=== PATIENT | female | born 1990 | race Caucasian/White ===

== ENCOUNTER 2018-01-29 05:17 | Inpatient (IN) | payer OTHER ==
[~2018-01-29] VITALS: Ht 162.6 cm; Wt 91.6 kg
[~2018-01-29 05:17] MED LIST: IBUP-1673 PO; PREN-196 PO
[2018-01-29] MEDS ORDERED: LACTATED RINGERS 1000ML 1,000 ML IV PRN (05:40)
[2018-01-29 06:18] LABS: MEAN CORPUSCULAR HEMOGLOBIN 29.6 pg (27.0-33.0); MEAN CORPUSCULAR HGB CONC 33.8 g/dL (32.0-36.0); MEAN CORPUSCULAR VOLUME 87.8 fL (79-99); NUCLEATED RED BLOOD CELLS 0.1 % (0.0-0.19); PLATELET COUNT (AUTO) 180 K/uL (130-400); RED CELL DISTRIBUTION WIDTH 14.5 % (11.0-15.5); WHITE BLOOD COUNT (AUTO) 12.4 K/uL (4.8-10.8)
[2018-01-29] MEDS ORDERED: EPHEDRINE SULFATE 50 MG/ML AMPULE IVP PRN (07:45)
[2018-01-29] MEDS ORDERED: PROMETHAZINE HCL 25 MG/ML 1ML AMPULE IM PRN (07:45)
[2018-01-29] MEDS ORDERED: NALOXONE HCL 0.4 MG/1 ML ML IV PRN (07:45)
[2018-01-29] MEDS ORDERED: LACTATED RINGERS 500 ML 500 ML IV PRN (07:45)
[2018-01-29] MEDS ORDERED: MEPERIDINE-PF 50 MG/ML SYG IVP PRN (07:45)
[2018-01-29 08:38] LABS: APPEARANCE,URINE Clear (CLEAR); BILIRUBIN,URINE Negative (NEGATIVE); COLOR,URINE Yellow (YELLOW); GLUCOSE, URINE (UA) Negative (NEGATIVE); KETONES,URINE Negative (NEGATIVE); LEUKOCYTE ESTERASE ,URINE Negative (NEGATIVE); NITRATE,URINE Negative (NEGATIVE); OCCULT BLOOD,URINE Negative (NEGATIVE); PROTEIN,URINE Negative (NEGATIVE); UROBILINOGEN,URINE 0.2 mg/dL (0.2-1.0)
[2018-01-29 09:07] LABS: RAPID PLASMA REAGIN NONREACTIVE (NONREACTIVE)
[2018-01-29] MEDS ORDERED: ACETAMINOPHEN 325 MG TAB ONE (13:47)
[2018-01-29] MEDS ORDERED: OXYTOCIN 10 USP UNITS/ML ONE ×2 (16:03→17:43)
[2018-01-29] MEDS ORDERED: LIDOCAINE HCL-MPF 1% 2ML VIAL ONE (16:05)
[2018-01-29] MEDS ORDERED: BENZOCAINE/LANOLIN/ALOE VERA 60 ML AEROSOL TP PRN (16:30)
[2018-01-29] MEDS ORDERED: LANOLIN 30GM OINTMENT TP PRN (16:30)
[2018-01-29] MEDS ORDERED: OXYTOCIN-LR 20 UNITS/1000 ML 1,000 ML IV SCH (16:30)
[2018-01-29] MEDS ORDERED: ACETAMINOPHEN 325 MG TAB PO PRN (16:30)
[2018-01-29] MEDS ORDERED: WITCH HAZEL 1 PAD TP PRN (16:30)
[2018-01-29 18:05] VITALS: BP 123/75
[2018-01-29] MEDS: IBUPROFEN 600 MG TABLET PO PRN (18:34)
[2018-01-29 20:40] VITALS: BP 122/61
[2018-01-29] MEDS: DOCUSATE SODIUM 100 MG CAP PO SCH (20:55)
[2018-01-30 00:57] VITALS: BP 125/60
[2018-01-30 04:51] VITALS: BP 95/54
[2018-01-30 05:22] LABS: MEAN CORPUSCULAR HEMOGLOBIN 30.2 pg (27.0-33.0); MEAN CORPUSCULAR HGB CONC 34.3 g/dL (32.0-36.0); MEAN CORPUSCULAR VOLUME 87.9 fL (79-99); PLATELET COUNT (AUTO) 186 K/uL (130-400); RED BLOOD CELL COUNT(AUTO) 3.64 MIL/uL (4.00-5.50); RED CELL DISTRIBUTION WIDTH 14.5 % (11.0-15.5); WHITE BLOOD COUNT (AUTO) 13.3 K/uL (4.8-10.8)
[2018-01-30] MEDS: IBUPROFEN 600 MG TABLET PO PRN ×2 (06:57→18:49)
[2018-01-30 07:52] VITALS: BP 120/74
[2018-01-30] MEDS: DOCUSATE SODIUM 100 MG CAP PO SCH ×2 (09:09→21:01)
[2018-01-30 10:24] LABS: HEPATITIS Bs ANTIGEN SCREEN P Negative (Negative)
[2018-01-30 11:43] VITALS: BP 126/70
[2018-01-30 16:38] VITALS: BP 125/81
[2018-01-30] MEDS ORDERED: DIPH,PERTUSS(ACELL),TET VAC/PF 0.5 ML VIAL IM ONE (18:46)
[2018-01-30 20:41] VITALS: BP 125/72
[2018-01-31 00:01] VITALS: BP 137/73
[2018-01-31 04:13] VITALS: BP 96/56
[2018-01-31 08:06] VITALS: BP 125/72
[2018-01-31] MEDS: DOCUSATE SODIUM 100 MG CAP PO SCH (08:57)
[2018-01-31] MEDS: IBUPROFEN 600 MG TABLET PO PRN (08:57)
[2018-01-31 11:43] VITALS: BP 126/76
== END 2018-01-31 12:50 | disposition home or self-care (01) | DRG 775 ==
LOC: EDH 05:17 → LDH 05:18 → OBSVTOIN 05:40 → WSH 18:05
PROVIDERS: ADMIT Obstetrics & Gynecology; ATTEND Obstetrics & Gynecology
PROC: 0HQ9XZZ Repair Perineum Skin, External Approach (ICD-10-PCS; principal; 2018-01-29)
PROC: 10E0XZZ Delivery of Products of Conception, External Approach (ICD-10-PCS; 2018-01-29)
PROC: 10907ZC Drainage of Amniotic Fluid, Therapeutic from Products of Conception, Via Natural or Artificial Opening (ICD-10-PCS; 2018-01-29)
PROC: 3E0234Z Introduction of Serum, Toxoid and Vaccine into Muscle, Percutaneous Approach (ICD-10-PCS; 2018-01-30)
DX: O70.0 First degree perineal laceration during delivery (principal); Z3A.38 38 weeks gestation of pregnancy; Z37.0 Single live birth; Z23 Encounter for immunization
CPT/HCPCS: 36415; 81003; 85027; 86592; 86701; 86850; 86900; 86901; 87340; 87390; 90715; A4351; A4606; J2175; J2550; J2590; J3490; J7120; Q2038